=== PATIENT | female | born 1995 | race Caucasian/White ===

== ENCOUNTER 2020-08-03 17:40 | Emergency (ER) | payer MEDICAID ==
--- NOTE | 2020-08-03 18:07 | NUR ---
NO ANSWER FROM LOBBY
== END 2020-08-03 18:19 | disposition left against medical advice (07) ==
LOC: ED 18:15
DX: M79.641 Pain in right hand (principal); M79.642 Pain in left hand; Z53.21 Procedure and treatment not carried out due to patient leaving prior to being seen by health care provider

== ENCOUNTER 2020-10-10 02:33 | Emergency (ER) | payer MEDICAID ==
[~2020-10-10] VITALS: Ht 167.6 cm; Wt 65.1 kg
[2020-10-10 02:36] VITALS: BP 127/79
--- NOTE | 2020-10-10 03:15 | NUR ---
ERP AT BEDSIDE TO FLUSH EYE OUT
== END 2020-10-10 04:12 | disposition home or self-care (01) ==
LOC: ED 03:13
DX: H57.89 Other specified disorders of eye and adnexa (principal)
CPT/HCPCS: 99283

== ENCOUNTER 2020-11-12 16:36 | Emergency (ER) | payer MEDICAID ==
[~2020-11-12] VITALS: Ht 167.6 cm; Wt 65.0 kg
--- NOTE | 2020-11-12 17:20 | NUR ---
TASK RN, COVERING PRIMARY RN ASSIGNMENT. REPORT FROM BERNABE. IV PLACED BY BERNABE RN, LABS DRAWN WITH START. URINE COLLECTED. CALL LIGHT WITHIN REACH.
[2020-11-12] MEDS ORDERED: ONDANSETRON 2MG/ML, 2ML ONE (17:22)
[2020-11-12] MEDS ORDERED: MORPHINE SULFATE 4 MG/ML, 1ML ONE (17:23)
--- NOTE | 2020-11-12 17:29 | NUR ---
ATTEMPT TO MEDICATE PT PER ERP ORDER. PT REFUSING MORPHINE, STATES "I'M ON SUBOXONE AND CAN'T TAKE MORPHINE". PT STATES PAIN 3/10 TO ABDOMEN AND FLANK. PT DENIES NAUSEA BUT REQUESTS TO HAVE ZOFRAN WHICH WAS GIVEN. LABS AND URINE PICKED UP BY HOSPITAL ATTENDANT. CALL LIGHT WITHIN REACH.
[2020-11-12] MEDS ORDERED: ONDANSETRON 2MG/ML, 2ML IVPush ONE (17:30)
[2020-11-12] MEDS ORDERED: MORPHINE SULFATE 4 MG/ML, 1ML IVPush PRN (17:30)
[2020-11-12] MEDS ORDERED: SODIUM CHLORIDE FLUSH 10ML SYR IVF ONE (17:30)
[2020-11-12 17:38] LABS: MICROSCOPIC NOT IND
[2020-11-12 17:50] LABS: BASOPHILS % (AUTO) 1 % (0-1); EOSINOPHILS % (AUTO) 2 % (1-7); LYMPHOCYTES % (AUTO) 38 % (22-44); MEAN CORPUSCULAR HGB CONC 33.6 g/dL (32.4-35.8); MEAN PLATELET VOLUME 8.4 fL (7.4-10.4); MONOCYTES % (AUTO) 6 % (2-9); NEUTROPHILS % (AUTO) 55 % (42-75); PLATELET COUNT 242 x10^3/uL (130-400); RED BLOOD COUNT 4.44 x10^6/uL (3.82-5.3); RED CELL DISTRIBUTION WIDTH 14.1 % (9.6-15.2)
[2020-11-12 17:51] LABS: ALANINE AMINOTRANSFERASE 24 U/L (12-78); ALBUMIN 3.7 g/dL (3.4-5.0); ANION GAP 5 mmol/L (5-15); CALCIUM 8.4 mg/dL (8.5-10.1); CHLORIDE 108 mmol/L (98-107); CREATININE 0.67 mg/dL (0.55-1.02)
[2020-11-12 17:53] LABS: MD NO
[2020-11-12 17:55] LABS: ALKALINE PHOSPHATASE 75 U/L (45-117); BILIRUBIN,TOTAL 0.2 mg/dL (0.2-1.0); TOTAL PROTEIN 6.9 g/dL (6.4-8.2)
--- NOTE | 2020-11-12 18:05 | NUR ---
PT TO CT
--- NOTE | 2020-11-12 18:17 | NUR ---
PT BACK FROM CT. CALMLY SITTING ON GURNEY. NAD/VSS. COMFORT MEASURES PROVIDED. CALL LIGHT WITHIN REACH.
--- NOTE | 2020-11-12 18:43 | NUR ---
AT BS. PT REFUSED US
[2020-11-12 18:54] VITALS: BP 101/68
== END 2020-11-12 18:57 ==
LOC: ED 18:45
DX: R10.32 Left lower quadrant pain (principal); Z88.5 Allergy status to narcotic agent
CPT/HCPCS: 36415; 74176; 80053; 81003; 83690; 84703; 85025; 96374; 99284; J2405